=== PATIENT | female | born 1960 | race African-American/Black ===

== ENCOUNTER 2021-02-20 23:54 | Emergency (ER) | payer BC, OTHER ==
[~2021-02-20] VITALS: Ht 177.8 cm; Wt 104.3 kg
[2021-02-21 00:10] VITALS: BP_SYST 121
--- NOTE | 2021-02-21 00:10 | NUR ---
Placed in room 5 .
--- NOTE | 2021-02-21 00:25 | NUR ---
Pt BIB daughter from home c/o right knee pain s/p slip and fall. Pt stated she slipped in a water puddle today around 4pm and landed on the tile ted. Pt reports taking Motrin 600mg @1700 and again just [employer] with no relief of pain. Pt presents with a home ice pack to the knee. +limited ROM, +swelling, unable to bear weight on leg, no obvious deformity.
[2021-02-21] MEDS ORDERED: IBUPROFEN 600 MG TABLET PO ONE (00:30)
[2021-02-21] MEDS: HYDROcodone/ACETAMIN 5-325 MG TAB (NORCO/ VICODIN) PO ONE (00:43)
--- NOTE | 2021-02-21 00:50 | NUR ---
XRAY AT BEDSIDE
--- NOTE | 2021-02-21 01:00 | NUR ---
Dr. Morgan at bedside
[2021-02-21] MEDS ORDERED: HYDR-3917 PO (01:11)
[2021-02-21 01:50] VITALS: BP_SYST 121
--- NOTE | 2021-02-21 01:50 | NUR ---
Patient given written and verbal discharge instructions and verbalizes understanding. ER MD discussed with patient the results and treatment provided. Patient in stable condition. ID arm band removed. Rx of NORCO given. Patient educated on pain management and to follow up with PMD. Pain Scale 5/10. Opportunity for questions provided and answered. Medication side effect fact sheet provided.
== END 2021-02-21 01:50 | disposition home or self-care (01) ==
LOC: SED 23:54
DX: S83.8X1A Sprain of other specified parts of right knee, initial encounter (principal); W01.0XXA Fall on same level from slipping, tripping and stumbling without subsequent striking against object, initial encounter; Y93.89 Activity, other specified; Y92.89 Other specified places as the place of occurrence of the external cause; Y99.8 Other external cause status
CPT/HCPCS: 73564; 99283

== ENCOUNTER 2023-12-23 22:09 | Emergency (ER) | payer BC, OTHER ==
[~2023-12-23] VITALS: Ht 177.8 cm; Wt 108.9 kg
[~2023-12-23 22:09] MED LIST: HYDR-3917 PO
[2023-12-23 22:26] VITALS: BP_SYST 138; PULSE 90; RESP 20; TEMP 97.6; O2SAT 97
[2023-12-23 23:12] LABS: INFLUENZA TYPE A Negative (NEGATIVE); INFLUENZA TYPE B NEGATIVE (NEGATIVE)
[2023-12-23] MEDS ORDERED: CEFU250T85 PO (23:57)
[2023-12-24 00:08] VITALS: BP_SYST 138; PULSE 90; RESP 20; TEMP 97.6; O2SAT 96
== END 2023-12-24 00:05 | disposition home or self-care (01) ==
LOC: SED 22:09
DX: J20.9 Acute bronchitis, unspecified (principal); R05.9 Cough, unspecified; R50.9 Fever, unspecified; Z79.899 Other long term (current) drug therapy; Z20.822 Contact with and (suspected) exposure to COVID-19
CPT/HCPCS: 36415; 71045; 99284